=== PATIENT | female | born 1975 | race Caucasian/White ===

== ENCOUNTER → 2019-12-17 | Outpatient (CLI) | payer OTHER ==
[~2019-12-17] MED LIST: AMBIEN 5 MG TABL5 MG PO; AMLODIPINE BESY10 MG PO; BACLOFEN 10MG T10 MG PO; BIOTIN5 M1 PO; CHANTIX1 MG PO; COLLAGEN PLUS1 EACH PO; DULOXETINE HCL60 MG PO; GABAPENTIN600 M1 PO; HAIR, SKIN & N1 EAC2 PO; IBUPROFEN 800800 M1 PO; LASIX 20 MG TAB20 MG PO; LOSARTAN POTASS50 MG PO; NORCO 10-325 T1 EACH PO; TURMERIC500 M2 PO; VITAMIN B-12250 MCG PO
== END ==
LOC: LAB 09:19
PROVIDERS: ATTEND Orthopaedic Surgery Hand Surgery
DX: Z01.812 Encounter for preprocedural laboratory examination (principal); Z20.828 Contact with and (suspected) exposure to other viral communicable diseases

== ENCOUNTER → 2019-12-20 | Day surgery (SDC) | payer OTHER ==
[~2019-12-20] VITALS: Ht 172.7 cm; Wt 102.1 kg
--- NOTE | ~2019-12-20 | O ---
[facility] [place] [address] [place] [address] OPERATIVE REPORT Name: MILI MAC Room #: REG [facility]..#: [id number] Admission: 12/20/19 Attend Phys: Blanca Magaña, Discharge: Date of : 75 Report #: [id number] THIS REPORT FOR: cc: ROSALIE - Family physician unknown Physician not on staff Blanca Magaña MD ~ CC: ROSALIE unknown Physician staff JUAN DANIEL Magaña DATE OF SERVICE: 12/20/2019 PREOPERATIVE DIAGNOSES: 1. Right carpal tunnel syndrome. 2. Left carpal tunnel syndrome. POSTOPERATIVE DIAGNOSES: 1. Right carpal tunnel syndrome. 2. Left carpal tunnel syndrome. PROCEDURES PERFORMED: 1. Right open carpal tunnel release. 2. Left open carpal tunnel release. SURGEON: Blanca Magaña MD ANESTHESIA: General mask anesthesia. ESTIMATED BLOOD LOSS: Minimal. TOURNIQUET TIME: Right 12 minutes, left 16 minutes. COMPLICATIONS: None. CONDITION: Stable. DISPOSITION: Recovery room. INDICATIONS: The patient is a 44-year-old female with the above-mentioned diagnosis. She elects for operative treatment. The risks, benefits, alternatives and complications were discussed including, but not limited to infection, damage to vessels or nerves, incomplete relief or worsening of any symptoms. Informed consent was obtained. The correct extremity was identified and labeled by myself after verbal confirmation of the patient as well as visual confirmation and signed informed consent. Of note, she discussed that [facility] [address] [place] [address] OPERATIVE REPORT Name: MILI MAC Room #: [facility] M..#: [id number] Admission: 12/20/19 Attend Phys: Blanca Magaña, Discharge: Date of : 75 Report #: [id number] Amaury has given her approximately 8 extra [place], which she normally receives for her back pain in anticipation of the surgical procedure. I discussed I will give her the prescription for oxycodone, 10 pills of these, which she may use only if the hydrocodone is not helping. I discussed that most likely if she can tolerate Tylenol only, this may be enough. I believe she verbalized that she is unable to take NSAIDs. DESCRIPTION OF PROCEDURE: The patient was brought to the operating room and placed on the operative table in a supine position. Tourniquets were placed over padding on the patient's both upper extremities. Both upper extremities were sterilely prepped and draped in the usual fashion. Final timeout was taken to verify correct patient, operative procedure, operative site, all concurred. First, attention was placed to the left. All this procedure was done with aid of 3.5 times loupe magnification. Left upper extremity was elevated, exsanguinated and tourniquet inflated. Next, approximately a 2.5-3 cm incision was made over the carpal tunnel in line with the ring and long finger web space. Dissection was carried down through subcutaneous tissue with tenotomy scissors. In the mid portion incision, a #15 blade was used to incise the very thick transverse carpal ligament. The very thick transverse carpal ligament was then transected proximally from the antebrachial fascia in the forearm all the way through the fat in the palm. The nerve was significantly hyperemic, but had a nice vascular pattern after complete release of the very thick transverse carpal ligament. The wound was thoroughly irrigated. Skin was closed with 4-0 nylon suture. Wound was infiltrated with approximately 5 mL of 0.25% Marcaine. She was placed in a bulky dressing. All fingers were pink with brisk capillary refill at the conclusion of case after deflation of tourniquet and after application of dressing. All sponge and needle counts were correct. Next, attention was placed to the right. The right lower extremity was elevated, exsanguinated and tourniquet inflated. Approximately 3 cm incision was made over the carpal tunnel in line with the ring and long finger web space. Dissection was carried down through subcutaneous tissue with tenotomy scissors. In the mid portion incision, a #15 blade was used to incise the very thick transverse carpal ligament. The very thick transverse carpal ligament was then transected proximally from the antebrachial fascia in the forearm all through the fat in the palm. There was a nice return of vascular pattern after complete release of the very thick transverse carpal ligament. There was noted hyperemia of the nerve. The wound was thoroughly irrigated. Skin was closed with 4-0 nylon suture. Wound was dressed with Adaptic and sterile gauze after infiltrating subcutaneous tissue with approximately 5 mL of 0.25% Marcaine. All fingers were pink with brisk capillary refill at the conclusion of case after [facility] [address] [place] [address] OPERATIVE REPORT Name: AVERYMILI AGARWAL Room #: [facility] M.R.#: [id number] Admission: 12/20/19 Attend Phys: Blanca Magaña, Discharge: Date of : 75 Report #: [id number] deflation of tourniquet. All sponge and needle counts were correct. The patient was transferred to postoperative recovery room in stable condition. By: 1628 1722 Blanca Magaña MD /nt
[2019-12-20 13:26] LABS: CREATININE 0.9 mg/dL (0.6-1.0); POTASSIUM 3.4 mmol/L (3.5-5.1)
[2019-12-20 13:46] VITALS: BP 131/68
--- NOTE | 2019-12-20 15:36 | EKG ---
[facility] [place] [address] [place] [address] ELECTROCARDIOGRAM REPORT Name: MILI MAC Room #: REG [facility] M..#: [id number] Admission: 12/20/19 Attend Phys: Blanca Magaña, Discharge: Date of : 75 Report #: [id number] THIS REPORT FOR: cc: FAM - Family physician unknown Physician not on staff Javier Dyson MD [facility] ~ THIS REPORT FOR: //name// [facility] Test Date: 2019-12-20 Test Time: 13:08:18 Pat Name: MILI MAC Department: Room: Gender: Head Of [employer]: RAYMUNDO : 1975 Requested By: Blanca Magaña Order Number: [id number] : Javier Dyson Measurements Intervals [place] Rate: 92 P: 47 LA: 146 QRS: 56 QRSD: 97 T: 2 QT: 390 QTc: 483 Interpretive Statements Sinus rhythm Baseline wander in lead(s) V1 No previous ECG available for comparison Electronically Signed On 12-20-2019 15:36:03 SUPPORT ANALYST by Javier Dyson [email or web address] <ELECTRONICALLY SIGNED> By: Javier Dyson MD, FACC 12/20/19 1536 1308 130 Javier Dyson MD, FAC /EPI
[2019-12-20 16:21] VITALS: BP 131/68
== END | disposition home or self-care (01) ==
LOC: OR
PROVIDERS: ATTEND Orthopaedic Surgery Hand Surgery
DX: G56.03 Carpal tunnel syndrome, bilateral upper limbs (principal); I10 Essential (primary) hypertension; G47.30 Sleep apnea, unspecified; F17.210 Nicotine dependence, cigarettes, uncomplicated; Z98.890 Other specified postprocedural states; Z79.899 Other long term (current) drug therapy; Z98.51 Tubal ligation status; Z90.49 Acquired absence of other specified parts of digestive tract
CPT/HCPCS: 50010; 50101; 50386; 56526; 57006; 57091; 57178; 62110; 62900; 70005